=== PATIENT | male | born 1990 | race Caucasian/White ===

== ENCOUNTER → 2020-03-16 12:18 | Outpatient (BNVA) | payer OTHER, SELFPAY | PROVIDERS: Visit Provider Nurse Practitioner Family | DX: M79.641 Pain in right hand (principal) | CPT/HCPCS: 73130 ==

== ENCOUNTER 2022-02-24 09:57 | Emergency (ER) | payer SELFPAY ==
[2022-02-24 10:13] VITALS: BMI 30.8
--- NOTE | 2022-02-24 10:33 | XRR_ITS ---
PROCEDURE INFORMATION: Exam: XR Right Foot Exam date and time: 02/24/2022 10:40 AM Age: 31 years old Clinical indication: Injury or trauma; Fall; Blunt trauma; Foot; Right; Additional info: Pain, injury TECHNIQUE: Imaging protocol: Radiologic exam of the Right foot. Views: 3 or more views. COMPARISON: No relevant prior studies available. FINDINGS: Bones/joints: Negative for acute bony abnormality Soft tissues: Normal. XR/XR foot RT min 3V* [id number] IMPRESSION: No acute findings.
--- NOTE | 2022-02-24 10:33 | XRR_ITS ---
PROCEDURE INFORMATION: Exam: XR Right Ankle Exam date and time: 02/24/2022 10:40 AM Age: 31 years old Clinical indication: Injury or trauma; Fall; Blunt trauma; Ankle; Right; Additional info: Pain, injury TECHNIQUE: Imaging protocol: Radiologic exam of the Right ankle. Views: 3 or more views. COMPARISON: No relevant prior studies available. FINDINGS: Bones/joints: Negative for acute bony abnormality. Soft tissues: Unremarkable XR/XR ankle RT min 3V* [id number] IMPRESSION: No acute findings.
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
[2022-02-24 12:02] VITALS: PULSE 69; O2SAT 93
--- NOTE | 2022-02-25 11:39 | DCPLANNER ---
Addendum entered by Sheryl Farley 03/28/22 08:41: reimbursement manager received the following message from the ortho clinic regarding follow up appointment: Attempted to call the number in the chart// Woman who answered said we have the wrong number. I mailed a letter. Thank you Original Note: reimbursement manager had message to schedule a follow up appointment for patient with ortho. reimbursement manager sent patients information to the front office staff at ortho. Patients information will be printed and reviewed. Clinic will call patient with appointment information.
== END 2022-02-24 12:03 | disposition home or self-care (01) ==
PROVIDERS: Emergency Provider Emergency Medicine
DX: S90.31XA Contusion of right foot, initial encounter (principal); V19.9XXA Pedal cyclist (driver) (passenger) injured in unspecified traffic accident, initial encounter
CPT/HCPCS: 73610; 73630; 99283